=== PATIENT | male | born 1960 | race Caucasian/White ===

== ENCOUNTER → 2018-02-27 | Outpatient (CLI) | payer MEDICARE, OTHER ==
--- NOTE | 2018-02-27 09:22 | RADIOLOGY REPORT (SQ) ---
EXAM DESCRIPTION: COOKIE SWALLOW COMPLETED DATE/TIME: 02/27/2018 9:01 am REASON FOR STUDY: DYSPHAGIA R13.10 DYSPHAGIA, UNSPECIFIED FOOD IN PHARYNX CAUSING OTHER INJURY, SEQ UELA T1 7.228 S COMPARISON: None. TECHNIQUE: Videofluoroscopic swallowing examination was performed in conjunction with speech patholo gy. Videofluoroscopic imaging was obtained and reviewed and these are the findings: RADIATION DOSE: Total fluoroscopy time: 1 minutes 39 seconds 1 fluoroscopy image saved to PACS. LIMITATIONS: None FINDINGS: The patient was brought into the fluoro room and placed upright on a modified barium swall ow chair. The patient was then given multiple consistencies mixed with barium to swallow under live fluoroscopic video guidance. According to the Speech Pathologist there was laryngeal penetration wit h pudding thick consistencies only. No other laryngeal penetration and no tracheal aspiration. Norm al oral and pharyngeal transit time noted. No significant post swallow residual seen. Please see sp eech pathology report for further details and recommendations. IMPRESSION: LARYNGEAL PENETRATION WITH PUDDING THICK CONSISTENCIES ONLY. NO OTHER LARYNGEAL PENETRA TION AND NO TRACHEAL ASPIRATION.PLEASE SEE SPEECH PATHOLOGIST REPORT FOR OTHER FINDINGS AND RECOMMEND ATIONS. COMMENT: Quality ID [id number]: Final reports for procedures using fluoroscopy that document radiation exp osure indices, or exposure time and number of fluorographic images (if radiation exposure indices are not available) TECHNICAL DOCUMENTATION: JOB ID: [id number] [employer]- All Rights Reserved Reading location - IP/workstation name: [facility]
--- NOTE | 2018-02-27 11:55 | ST Modified Barium Swallow ---
Recommendation - Recommendations Recommendations: Mechanical soft, cut meats recommended due to difficulty with oral phase of swallow for meats. No other recommendations at this time. May need repeat study in the future should deficits worsen. Medical Diagnoses - Medical Diagnoses Medical Diagnosis Description & ICD-10 Code(s): dysphagia, R13.10 Other Medical Diagnoses/Co-Morbidities: Parkinson's disease ST Modified Barium Swallow - General Date: 02/27/18 Referring Physician: Dr. See Risks/Precautions: None - History History obtained from: Patient - Patient is a 57 year old male who attended today's test with his . Patient reports he has was diagnosed with Parkinson' s about 16 years ago. Patient reports he has had two deep brain stimulation (DBS ) surgeries in June 2011 and December 2016 and has two DBS implants, one on each side of his brain. Patient reports that his speech got significantly worse after his last DBS surgery when they performed surgery on the left side of his brain. reports that they were initially told it would go away, but it hasn' t. reports they went to [place] for a second opinion and doctor reported that the electrode may have placed to close to the language center of the brain. Patient also reports dysphagia and having particular difficulty with meat and rice and occasionally with water. Patient has been seen in outpatient setting for speech services, but has requested to cancel appointments at this time due to upcoming medical appointments. Medications: Sinemet, requip, celexa, amantadine Allergies: none reported - Functional Status Prior Functional Status: INDEPENDENT: feeding - independent - Subjective Patient/caregiver goal(s): r/o aspiration Cognitive-Linguistic Function: WNL Speech Intelligibility: Reduced intelligibility Current Nutritional Means: PO Current PO diet: Regular Current symptoms: c/o Globus sensation Pain: Patient reports, 0/5 - Objective Assessment: Upright, Left Lateral - Food Trials Used Food trials used: Thin liquids, Pureed, Regular The patient: Was Able to Self Feed - Oral-Motor Skills Dentition: Full Laryngeal Function: Volitional Cough - WNL, Volitional Swallow - WNL - Assessment Oral prep: Normal Labial closure: Adequate Leakage: None Mastication: Adequate Lingual Movement: Normal Oral stage: Normal for this Procedure - patient does report some difficulty orally managing foods, but not seen for this study - Pharyngeal Stage Initiation of Pharyngeal Stage Reflex: Normal Decreased laryngeal elevation: No Reduced Velopharyngeal Closure: no Reduced pressure generation: No reduced tongue-based retraction: No Pre-swallow pooling in valleculae: None Pre-Swallow pooling in pyriforms: None Reduced Thyro-Hyoid approximation: No Reduced epiglottic excursion: No Reduced pharyngeal peristalsis/contraction: No Multiple Swallows with: Effective Post-swallow residulas vallecular: Mild - with pudding Post-Swallow residuals in pyriforms: None Pharyngeal Stage Comments: WFL-penetration of pudding x1, able to clear. - Esophageal Stage Cricopharyngeal Function: Normal - Fall Risk Assessment Medications/Conditions that increase fall risks include: Antidepressants, sedatives, anti-arrhythmic, diuretic, benzodiazipenes, neuroleptics. BP regulation problems, cardiac problems, balance or gait deficits, neurological problems. Fall Risk Actions Taken: No action needed - Behavioral Observations During evaluation process patient: was pleasant, was cooperative, able to answer questions - Treatment / Educational Needs: Treatment/Education Needs: Treatment consisted of patient education on the role of the Speech Pathologist. Patient's plan of care and golas were communicated as well as scheduling and attendance policies. Recommendations for initial home program were shared. Patient demonstrated understanding and verbalized agreement. - Impression/Summary Laryngeal Penetration: Yes, Flash, during swallow Consistency: Pudding Tracheal Aspiration: no Patient presents with: Normal swallow at eval Risk of Aspiration: Minimal Risk of nutritional compromise: WNL Evaluation and Findings: No pharyngeal phase deficits seen for swallowing this day. The patient does report some difficulty with specific foods (rice, meats). However, this appear to be due more to oral phase bolus control rather than pharyngeal phase deficits. - Recommendations Solid diet recommendations: Chopped Meat Liquid Diet Modification: Thin Dysphagia therapy with DONOR CENTER TECHNICIAN: no Recommended techniques: Fully Upright During Meal, Small Bites and Sips Information, Precautions and Recommendations: Patient (Written), Patient (Verbal ), Family Member (Written), Family Member (Verbal) - Time Total Time: 20 - Plan of Care Strategies to optimize patient understanding include:: ongoing assessment of educational needs, implementation of educational strategies, and re-education. - - -: Thank you for the opportunity to work with this patient and his/her family. Should you have any questions about this patient's plan or progress, I can be reached at [phone]. Charge G Code? - - -: Yes ST F.L. Impairment Category - Rationale Based On Rationale Based On: Clin Find., Obj Measures - Swallowing Current G8996: CH 0% Impaired Goal G8997: CH 0% Impaired Discharge G8998: CH 0% Impaired
== END ==
LOC: RAD 08:33
PROVIDERS: ATTEND Psychiatry & Neurology Neurology
DX: R13.10 Dysphagia, unspecified (principal); G20 Parkinson's disease
CPT/HCPCS: 74230; 92611; G8996; G8997; G8998

== ENCOUNTER 2018-05-20 12:43 | Emergency (ER) | payer MEDICARE, OTHER ==
[2018-05-20] MEDS ORDERED: FENTANYL CITRATE INJ/PF 100 MCG/2 ML AMPUL IM ONE (14:26)
--- NOTE | 2018-05-20 14:29 | ER Document Report ---
ED Medical Screen (RME) - General Chief Complaint: Leg Pain Stated Complaint: LEFT LEG PAIN Time Seen by Provider: 05/20/18 14:17 Mode of Arrival: Wheelchair Information source: Patient Notes: 58 [facility] with complaints of left claf and leg pain. pt denies any fevers or chill I have greeted and performed a rapid initial assessment of this patient. A comprehensive ED assessment and evaluation of the patient, analysis of test results and completion of the medical decision making process will be conducted by additional ED providers. PHYSICAL EXAMINATION: GENERAL: Well-appearing, well-nourished and in no acute distress. HEAD: Atraumatic, normocephalic. EYES: Pupils equal round extraocular movements intact, conjunctiva are normal. ENT: Nares patent NECK: Normal range of motion LUNGS: No respiratory distress Musculoskeletal: weakness i nthe legs NEUROLOGICAL: weakness PSYCH: Normal mood, normal affect. SKIN: Warm, Dry, normal turgor, no rashes or lesions noted. TRAVEL OUTSIDE OF THE [place] IN LAST 30 DAYS: No - Related Data Allergies/Adverse Reactions: No Known Allergies Allergy (Verified 05/20/18 12:45) Past Medical History - Social History Frequency of alcohol use: Occasional Drug Abuse: None - Past Medical History Cardiac Medical History: Reports: Hx Hypertension - NO MEDS Denies: Hx Heart Attack Pulmonary Medical History: Denies: Hx Asthma Neurological Medical History: Denies: Hx Cerebrovascular Accident, Hx Seizures Renal/ Medical History: Denies: Hx Peritoneal Dialysis GI Medical History: Denies: Hx Hepatitis, Hx Hiatal Hernia, Hx Ulcer Infectious Medical History: Denies: Hx Hepatitis Past Surgical History: Denies: Hx Open Heart Surgery, Hx Pacemaker Physical Exam - Vital signs Vitals: Temp Pulse Resp BP Pulse Ox 99.1 F 86 16 154/105 H 97 05/20/18 12:53 05/20/18 12:53 05/20/18 12:53 05/20/18 12:53 05/20/18 12:53 Course - Vital Signs Vital signs: Temp Pulse Resp BP Pulse Ox 99.1 F 86 16 154/105 H 97 05/20/18 12:53 05/20/18 12:53 05/20/18 12:53 05/20/18 12:53 05/20/18 12:53 Doctor's Discharge - Discharge Referrals: MARY LEYVA MD [Primary Care Provider] - Follow up as needed
[2018-05-20] MEDS ORDERED: FENTANYL CITRATE INJ/PF 100 MCG/2 ML AMPUL IV ONE (14:30)
[2018-05-20 15:09] LABS: ABSOLUTE EOSINOPHILS # (AUTO) 0.3 10^3/uL (0.0-0.6); ABSOLUTE LYMPHOCYTES (AUTO) 1.2 10^3/uL (0.5-4.7); ABSOLUTE MONOCYTES (AUTO) 0.7 10^3/uL (0.1-1.4); ABSOLUTE NEUT (AUTO) 6.7 10^3/uL (1.7-8.2); BASOPHILS % (AUTO) 0.4 % (0-2); EOSINOPHILS % (AUTO) 3.2 % (0-6); HEMATOCRIT 42.1 % (37.9-51.0); HEMOGLOBIN 14.4 g/dL (13.5-17.0); LYMPHOCYTES % (AUTO) 13.9 % (13-45); MEAN CORPUSCULAR HEMOGLOBIN 31.3 pg (27.0-33.4); MEAN CORPUSCULAR HGB CONC 34.3 g/dL (32.0-36.0); MEAN CORPUSCULAR VOLUME 92 fl (80-97); MONOCYTES % (AUTO) 7.4 % (3-13); PLATELET COUNT 252 10^3/uL (150-450); RED CELL DISTRIBUTION WIDTH 12.2 % (11.5-14.0); SEGMENTED NEUTROPHILS % (AUTO) 75.1 % (42-78); TOTAL CELLS COUNTED % (AUTO) 100 %; WHITE BLOOD COUNT 8.9 10^3/uL (4.0-10.5)
[2018-05-20 15:33] LABS: ALANINE AMINOTRANSFERASE 14 U/L (21-72); ALBUMIN 4.1 g/dL (3.5-5.0); ALKALINE PHOSPHATASE 85 U/L (38-126); ANION GAP 11 (5-19); ASPARTATE AMINO TRANSFERASE 35 U/L (17-59); BILIRUBIN,DIRECT 0.3 mg/dL (0.0-0.4); BILIRUBIN,TOTAL 0.3 mg/dL (0.2-1.3); BLOOD UREA NITROGEN 23 mg/dL (7-20); CALCIUM 9.3 mg/dL (8.4-10.2); CARBON DIOXIDE 31 mmol/L (22-30); CHLORIDE 102 mmol/L (98-107); GLUCOSE 93 mg/dL (75-110); POTASSIUM 4.6 mmol/L (3.6-5.0); SODIUM 143.6 mmol/L (137-145); TOTAL PROTEIN 7.2 g/dL (6.3-8.2)
[2018-05-20] MEDS ORDERED: KETOROLAC TROMETHAMINE INJ/PF 30 MG/1 ML SDV IV ONE (16:40)
[2018-05-20] MEDS ORDERED: LIDOCAINE 5% (700 MG) TRANSDERMAL ADH..PATCH TP ONE (16:42)
--- NOTE | 2018-05-20 17:04 | RADIOLOGY REPORT (SQ) ---
EXAM DESCRIPTION: VENOUS UNILATERAL LOWER COMPLETED DATE/TIME: 05/20/2018 4:56 pm REASON FOR STUDY: left leg pain COMPARISON: None. TECHNIQUE: Dynamic and static mohamud scale and color images acquired of the left leg venous system. Se lected spectral images acquired with additional compression and augmentation maneuvers. The contralat eral common femoral vein and saphenofemoral junction were also imaged. Images stored on PACS. LIMITATIONS: None. FINDINGS: COMMON FEMORAL: Normal phasicity, compression and augmentation. No visualized echogenic ma terial on mohamud scale. No defects on color images. FEMORAL: Normal compression and augmentation. No visualized echogenic material on mohamud scale. No defe cts on color images. POPLITEAL: Normal compression, augmentation. No visualized echogenic material on mohamud scale. No defec ts on color images. CALF VESSELS: Normal compression, augmentation. No visualized echogenic material on mohamud scale. No de fects on color images. GSV and SSV: Normal compression, augmentation. No visualized echogenic material on mohamud scale. No def ects on color images. ANY DEEP VENOUS INSUFFICIENCY: No. ANY EVIDENCE OF POPLITEAL CYST: No. OTHER: No other significant finding. CONTRALATERAL COMMON FEMORAL VEIN AND SAPHENOFEMORAL JUNCTION: Normal phasicity, compression and augmentation. No visualized echogenic material on mohamud scale. No de fects on color images. IMPRESSION: NO EVIDENCE OF DVT OR SVT IN THE LEFT LEG. TECHNICAL DOCUMENTATION: JOB ID: [id number] [employer].- All Rights Reserved Reading location - IP/workstation name: [email or web address]
--- NOTE | 2018-05-20 18:20 | RADIOLOGY REPORT (SQ) ---
EXAM DESCRIPTION: HIP LEFT AP/LATERAL COMPLETED DATE/TIME: 05/20/2018 5:57 pm REASON FOR STUDY: pain COMPARISON: None. NUMBER OF VIEWS: Two views. TECHNIQUE: AP pelvis and additional frog-leg view of the left hip. LIMITATIONS: None. FINDINGS: MINERALIZATION: Normal. LEFT HIP: No fracture or dislocation. No worrisome bone lesions. RIGHT HIP: No fracture or dislocation. No worrisome bone lesions. PUBIS AND ISCHIUM: No fracture. PELVIS: No fracture. SACRUM: No fracture or dislocation. No worrisome bone lesions. LOWER LUMBAR SPINE: No fracture or dislocation. No worrisome bone lesions. No significant disc disea se. SOFT TISSUES: No findings. OTHER: No other significant finding. IMPRESSION: NEGATIVE STUDY OF THE LEFT HIP AND PELVIS. NO RADIOGRAPHIC EVIDENCE OF ACUTE INJURY. TECHNICAL DOCUMENTATION: JOB ID: [id number] [employer]- All Rights Reserved Reading location - IP/workstation name: [email or web address]
--- NOTE | 2018-05-20 18:21 | ER Document Report ---
ED General - General Chief Complaint: Leg Pain Stated Complaint: LEFT LEG PAIN Time Seen by Provider: 05/20/18 14:17 Mode of Arrival: Wheelchair TRAVEL OUTSIDE OF THE [place] IN LAST 30 DAYS: No - HPI Patient complains to provider of: Left leg pain Notes: Patient has a history of Parkinson's disease coming in today for evaluation of left leg pain. Patient states ongoing for the last few days was evaluated by his doctors at [facility] however no testing was done the images were taken. Patient states that the pain has been ongoing for months however is gone to the point now where he is having difficulty ambulating. States no etiology with visits to PCP neurologist and neurosurgery teams. Patient upon my evaluation sitting in the chair. Patient states starts in the lower back mostly in the buttocks and goes down the back side of his leg to his ankle. Patient denies any trauma denies fevers chills nausea or vomiting. - Related Data Allergies/Adverse Reactions: No Known Allergies Allergy (Verified 05/20/18 12:45) Past Medical History - General Information source: Patient - Social History Smoking Status: Never Smoker Frequency of alcohol use: Occasional Drug Abuse: None Family History: Reviewed & Not Pertinent Patient has suicidal ideation: No Patient has homicidal ideation: No - Past Medical History Cardiac Medical History: Reports: Hx Hypertension - NO MEDS Denies: Hx Heart Attack Pulmonary Medical History: Denies: Hx Asthma Neurological Medical History: Denies: Hx Cerebrovascular Accident, Hx Seizures Renal/ Medical History: Denies: Hx Peritoneal Dialysis GI Medical History: Denies: Hx Hepatitis, Hx Hiatal Hernia, Hx Ulcer Infectious Medical History: Denies: Hx Hepatitis Past Surgical History: Denies: Hx Open Heart Surgery, Hx Pacemaker Review of Systems - Review of Systems Constitutional: No symptoms reported EENT: No symptoms reported Cardiovascular: No symptoms reported Respiratory: No symptoms reported Gastrointestinal: No symptoms reported Genitourinary: No symptoms reported Male Genitourinary: No symptoms reported Musculoskeletal: No symptoms reported Skin: No symptoms reported Hematologic/Lymphatic: No symptoms reported Neurological/Psychological: No symptoms reported Physical Exam - Vital signs Vitals: Temp Pulse Resp BP Pulse Ox 99.1 F 86 16 154/105 H 97 05/20/18 12:53 05/20/18 12:53 05/20/18 12:53 05/20/18 12:53 05/20/18 12:53 Course - Re-evaluation Re-evalutation: 05/20/18 19:14 The patient presents with low back pain/leg pain without signs of spinal cord compression, cauda equina syndrome, infection, aneurysm, or other serious etiology. The patient is neurologically intact. Given the extremely low risk of these diagnoses further testing and evaluation for these possibilities does not appear to be indicated at this time. The patient has been instructed to return if the symptoms worsen or change in any way. Patient's x-rays that show some signs of slight constipation patient states difficult take a bowel movement as that is painful when he has a bowel movement. Patient is able to stand for his lumbar spine x-rays. Unclear etiology patient's pain distribution pain does sound similar to sciatica. Patient will be discharged home on Neurontin and a prednisone taper patient agrees with this course did give the patient a prescription for a walker at his request to as well. Patient information also be given to our social work team do think patient probably will benefit from physical therapy as outpatient patient was encouraged to follow-up with his especially team - Vital Signs Vital signs: Temp Pulse Resp BP Pulse Ox 97.5 F 87 18 156/106 H 96 05/20/18 19:09 05/20/18 19:09 05/20/18 19:09 05/20/18 19:09 05/20/18 19:09 - Laboratory Result Diagrams: 05/20/18 14:45 05/20/18 14:45 Laboratory results interpreted by me: 05/20/18 14:45 Carbon Dioxide 31 H BUN 23 H ALT 14 L Discharge - Discharge Clinical Impression: Leg pain Qualifiers: Laterality: left Qualified Code(s): M79.605 - Pain in left leg Condition: Good Disposition: HOME, SELF-CARE Instructions: Leg Pain Nonspecific ([facility]), Sciatica ([facility]) Additional Instructions: At this time laboratory studies show no signs of infection no signs of muscle breakdown. Your x-ray showed no signs of fracture does show some signs of slight constipation. Description of your pain is more consistent with sciatica. We will treated today with steroid taper and Neurontin. Would highly recommend she follow-up with your primary care physician and other specialist for further evaluation. Prescriptions: Gabapentin [Neurontin 100 mg Capsule] 100 mg PO Q12 #60 capsule Prednisone [Deltasone] 60 mg PO DAILY #24 tablet Walker [Ultra-Light Rollator] 1 each DAILY #1 each Referrals: MARY LEYVA MD [NO LOCAL MD] - Follow up as needed
--- NOTE | 2018-05-20 18:22 | RADIOLOGY REPORT (SQ) ---
EXAM DESCRIPTION: L SPINE WHOLE COMPLETED DATE/TIME: 05/20/2018 6:10 pm REASON FOR STUDY: back pain COMPARISON: None. NUMBER OF VIEWS: Five views including obliques. TECHNIQUE: AP, lateral, oblique, and sacral radiographic images acquired of the lumbar spine. LIMITATIONS: None. FINDINGS: MINERALIZATION: Normal. SEGMENTATION: Normal. No transitional anatomy. ALIGNMENT: Normal. VERTEBRAE: Maintained height. No fracture or worrisome bone lesion. DISCS: Degenerative disc disease L3-4, L4-5, L5-S1. POSTERIOR ELEMENTS: Pedicles and facets are intact. No pars defect or posterior arch defects. HARDWARE: None in the spine. PARASPINAL SOFT TISSUES: Normal. PELVIS: Intact as visualized. No fractures or worrisome bone lesions. SI joints intact. OTHER: No other significant finding. IMPRESSION: Multilevel degenerative disc disease. No acute fracture. TECHNICAL DOCUMENTATION: JOB ID: [id number] [employer]- All Rights Reserved Reading location - IP/workstation name: JOHN
[2018-05-20] MEDS ORDERED: PREDNISONE 20 MG TABLET PO ONE (18:41)
[2018-05-20] MEDS ORDERED: GABAPENTIN 100 MG CAPSULE PO ONE (18:41)
[2018-05-20 19:13] VITALS: BP 156/106
== END 2018-05-20 19:13 | disposition home or self-care (01) ==
LOC: ER 12:43
DX: M79.605 Pain in left leg (principal)
CPT/HCPCS: 99284; 96374; 96375; 36415; 82550; 85025; 80053; 93971; 73502; 72110; J3010; J1885; A9270 ×2; J7512

== ENCOUNTER 2018-06-04 08:47 | Day surgery (SDC) | payer MEDICARE, OTHER ==
[2018-06-04 09:37] LABS: INTERNATIONAL RATION (INR) 0.92; PARTIAL THROMBOPLASTIN TIME 25.9 SEC (23.5-35.8); PROTHROMBIN TIME 12.8 SEC (11.4-15.4)
[2018-06-04] MEDS ORDERED: LIDOCAINE 1% INJ-PF (10 MG/ML) 30 ML SDV ONE (09:47)
[2018-06-04] MEDS ORDERED: FENTANYL CITRATE INJ/PF 100 MCG/2 ML AMPUL ONE ×2 (10:23→10:24)
[2018-06-04] MEDS ORDERED: HYDROCODONE/ACETAMINOPHEN 5-325 MG TABLET ONE (11:20)
--- NOTE | 2018-06-04 11:53 | RADIOLOGY REPORT (SQ) ---
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 TECHNIQUE: Fluoroscopic guided lumbar myelogram. Postmyelogram CT lumbar spine with sagittal and coronal reconstructions. LIMITATIONS: None. PROCEDURE: After written consent and assessment were obtained, the patient was brought into the fluo roscopy room and placed prone on the table. The patient's lower back was prepped in a sterile fashio n and an entry site was selected under live fluoroscopic guidance. The entry site was anesthetized wi th 4 mL of 1% lidocaine. The 22 gauge needle was advanced through the skin and into the thecal sac at the left paracentral L1-2 level. Contrast was injected into the thecal sac. Following the procedur e the needle was removed and a sterile bandage was placed of the site. Prone cross-table lateral kate ms, multiple oblique prone and semi-erect films of the lumbar spine were obtained CONTRAST: 8 mL Isovue M 200. IMAGES ACQUIRED: Prone cross-table films, multiple oblique prone and semi-erect images, postmyelogram CT TECHNIQUE: After performing lumbar myelogram, axial images were acquired through the lumbar spine wi thout intravenous contrast. Images reviewed with lung, soft tissue and bone windows. Reconstructed coronal and sagittal MPR images reviewed. All images stored on PACS. All CT scanners at this facility use dose modulation, iterative reconstruction, and/or weight based d osing when appropriate to reduce radiation dose to as low as reasonably achievable (ALARA). [facility]: Dose Right [facility]: CareDose [facility]: Dose Right [facility]: Teradose 4D [facility]: [email or web address] FINDINGS: At fluoroscopy, a high-grade myelographic block is encountered at the L4-5 disc level. Mi nimal contrast bypasses the central canal stenosis at L4-5 to fill the sacral canal. On the prone cr oss-table lateral lumbar spine image, a large ventral epidural defect is present at the L4-5 level, a small ventral epidural defect is present at L3-4. Postmyelogram CT demonstrates a very large disc herniation at the L4-5 level causing complete effacem ent of the CSF around the lumbar nerve roots, with flattening of the thecal sac at the takeoff of the bilateral L5 nerve roots in the lateral recess. This is best shown on axial images 85-89, and sagit carolann reconstruction images 18 through 26. The bilateral L4 nerve roots exit above this disc herniatio n, without impingement. Remainder of the study demonstrates that the conus is at the T11-12 level. T10-11, T11-12, T12-L1, L 1-2, and L2-3 disc levels are unremarkable. At L3-4, there is mild diffuse posterior disc bulging and mild facet and ligament hypertrophy without significant foraminal narrowing. Borderline central canal stenosis. The L5-S1 level is unremarkable. Mild SI joint bony sclerosis and bony spurring. IMPRESSION: Myelographic block at the L4-5 level related to a large central disc herniation. This f lattens the thecal sac at the takeoff of the L5 nerve roots bilaterally in the lateral recess. L4 ne rve roots exit the spinal canal without impingement at this level. COMMENT: Patient medication list reviewed: Yes- Quality ID# [id number]:Eligible professional attests to doc umenting in the medical record they obtained, updated, or reviewed the patient's current medications. TECHNICAL DOCUMENTATION: JOB ID: [id number] Quality ID # [id number]: Final reports with documentation of one or more dose reduction techniques (e.g., Au tomated exposure control, adjustment of the mA and/or kV according to patient size, use of iterative reconstruction technique) 2010 [employer]- All Rights Reserved Reading location - IP/workstation name: [facility]
--- NOTE | 2018-06-04 11:53 | RADIOLOGY REPORT (SQ) ---
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 TECHNIQUE: Fluoroscopic guided lumbar myelogram. Postmyelogram CT lumbar spine with sagittal and coronal reconstructions. LIMITATIONS: None. PROCEDURE: After written consent and assessment were obtained, the patient was brought into the fluo roscopy room and placed prone on the table. The patient's lower back was prepped in a sterile fashio n and an entry site was selected under live fluoroscopic guidance. The entry site was anesthetized wi th 4 mL of 1% lidocaine. The 22 gauge needle was advanced through the skin and into the thecal sac at the left paracentral L1-2 level. Contrast was injected into the thecal sac. Following the procedur e the needle was removed and a sterile bandage was placed of the site. Prone cross-table lateral kate ms, multiple oblique prone and semi-erect films of the lumbar spine were obtained CONTRAST: 8 mL Isovue M 200. IMAGES ACQUIRED: Prone cross-table films, multiple oblique prone and semi-erect images, postmyelogram CT TECHNIQUE: After performing lumbar myelogram, axial images were acquired through the lumbar spine wi thout intravenous contrast. Images reviewed with lung, soft tissue and bone windows. Reconstructed coronal and sagittal MPR images reviewed. All images stored on PACS. All CT scanners at this facility use dose modulation, iterative reconstruction, and/or weight based d osing when appropriate to reduce radiation dose to as low as reasonably achievable (ALARA). [facility]: Dose Right [facility]: CareDose [facility]: Dose Right [facility]: Teradose 4D [facility]: NEXGRID FINDINGS: At fluoroscopy, a high-grade myelographic block is encountered at the L4-5 disc level. Mi nimal contrast bypasses the central canal stenosis at L4-5 to fill the sacral canal. On the prone cr oss-table lateral lumbar spine image, a large ventral epidural defect is present at the L4-5 level, a small ventral epidural defect is present at L3-4. Postmyelogram CT demonstrates a very large disc herniation at the L4-5 level causing complete effacem ent of the CSF around the lumbar nerve roots, with flattening of the thecal sac at the takeoff of the bilateral L5 nerve roots in the lateral recess. This is best shown on axial images 85-89, and sagit carolann reconstruction images 18 through 26. The bilateral L4 nerve roots exit above this disc herniatio n, without impingement. Remainder of the study demonstrates that the conus is at the T11-12 level. T10-11, T11-12, T12-L1, L 1-2, and L2-3 disc levels are unremarkable. At L3-4, there is mild diffuse posterior disc bulging and mild facet and ligament hypertrophy without significant foraminal narrowing. Borderline central canal stenosis. The L5-S1 level is unremarkable. Mild SI joint bony sclerosis and bony spurring. IMPRESSION: Myelographic block at the L4-5 level related to a large central disc herniation. This f lattens the thecal sac at the takeoff of the L5 nerve roots bilaterally in the lateral recess. L4 ne rve roots exit the spinal canal without impingement at this level. COMMENT: Patient medication list reviewed: Yes- Quality ID# [id number]:Eligible professional attests to doc umenting in the medical record they obtained, updated, or reviewed the patient's current medications. TECHNICAL DOCUMENTATION: JOB ID: [id number] Quality ID # 436: Final reports with documentation of one or more dose reduction techniques (e.g., Au tomated exposure control, adjustment of the mA and/or kV according to patient size, use of iterative reconstruction technique) 2010 [employer]- All Rights Reserved Reading location - IP/workstation name: PENDING SALE TO [facility]
[2018-06-04 13:21] VITALS: BP 150/100
== END 2018-06-04 13:15 | disposition home or self-care (01) ==
LOC: RAD 08:47
PROVIDERS: ATTEND Orthopaedic Surgery Sports Medicine
DX: M54.16 Radiculopathy, lumbar region (principal); Z79.01 Long term (current) use of anticoagulants
CPT/HCPCS: 36415; 85610; 85730; 72265; 72132; J3010; J3490; A9270

== ENCOUNTER → 2019-09-08 | Outpatient (CLI) | payer MEDICARE, OTHER ==
--- NOTE | 2019-09-08 17:45 | RADIOLOGY REPORT (SQ) ---
EXAM DESCRIPTION: CT LUMBAR SPINE WITHOUT COMPLETED DATE/TIME: 09/08/2019 4:25 pm REASON FOR STUDY: M51.36 OTHER INTERVERTEBRAL DISC DEGENERATION, LUMBAR REGION M51.36 OTHER INTERVE RTEBRAL DISC DEGENERATION, LUMBAR REGION COMPARISON: None. TECHNIQUE: Axial images acquired through the lumbar spine without intravenous contrast. Images revi ewed with lung, soft tissue and bone windows. Reconstructed coronal and sagittal MPR images reviewe d. All images stored on PACS. All CT scanners at this facility use dose modulation, iterative reconstruction, and/or weight based d osing when appropriate to reduce radiation dose to as low as reasonably achievable (ALARA). [facility]: Dose Right [facility]: CareDose [facility]: Dose Right [facility]: Teradose 4D [facility]: [employer] RADIATION DOSE: mGy. LIMITATIONS: None. FINDINGS: SEGMENTATION: Normal. No transitional anatomy. ALIGNMENT: Normal. VERTEBRAL BODIES: No fractures. No dislocation. No acute findings. DISCS: Disc spaces are narrowed from L3-S1. L1-L2: No significant protrusions. No significant stenosis. L2-L3: No significant protrusions. No significant stenosis. L3-L4: No significant protrusions. No significant stenosis. L4-L5: Mild concentric disc bulging with no central canal or foraminal stenosis. L5-S1: No significant protrusions. No significant stenosis. PEDICLES, TRANSVERSE PROCESSES: No fractures. No dislocation. No acute findings. FACETS, POSTERIOR ELEMENTS: No fractures. No dislocation. No spinal stenosis. HARDWARE: None in the spine. VISUALIZED RIBS: No fractures. SOFT TISSUES: There are numerous small mesenteric lymph nodes. OTHER: No other significant finding. IMPRESSION: 1. Mild concentric disc bulging at L4-5 with no significant stenoses. No other signifi cant finding in the spine. 2. Numerous small mesenteric lymph nodes. Correlate for mesenteric adenitis. TECHNICAL DOCUMENTATION: JOB ID: [id number] Quality ID # 436: Final reports with documentation of one or more dose reduction techniques (e.g., Au tomated exposure control, adjustment of the mA and/or kV according to patient size, use of iterative reconstruction technique) 2010 [employer]- All Rights Reserved Reading location - IP/workstation name: [email or web address]
== END ==
LOC: RAD 15:58
PROVIDERS: ATTEND Orthopaedic Surgery Sports Medicine
DX: M51.36 Other intervertebral disc degeneration, lumbar region (principal)
CPT/HCPCS: 72131

== ENCOUNTER 2020-05-01 12:36 | Emergency (ER) | payer MEDICARE, OTHER ==
--- NOTE | 2020-05-01 12:56 | ER Document Report ---
ED Medical Screen (RME) - General Chief Complaint: Weakness Stated Complaint: WEAKNESS Time Seen by Provider: 05/01/20 12:50 Primary Care Provider: VENUS VALENZUELA MD [Primary Care Provider] - Follow up as needed Mode of Arrival: Wheelchair Information source: Relative - If Notes: 60-year-old male presented to ED for strokelike symptoms. He is scheduled for colonoscopy on Saturday he started his prep yesterday became very weak and fell. This morning he has not been able to speak is normal his eyes are twitching which is not his normal he does speak at times and at other times is not able to state speak he is much weaker than he is normally. And is not speaking his usual and is not oriented as usual. I have ordered a stroke protocol. When I first talked to her she was tell me he was weaker she did not let me know that he was not able to speak in his speech was garbled. He did answer me some sentences when I was speaking to him but he did not answer appropriately other questions I asked. He did not have any palmar drift he does have facial droop but this is his normal I have greeted and performed a rapid initial assessment of this patient. A comprehensive ED assessment and evaluation of the patient, analysis of test results and completion of medical decision making process will be conducted by an additional ED providers. TRAVEL OUTSIDE OF THE [place] IN LAST 30 DAYS: No - Related Data Allergies/Adverse Reactions: No Known Allergies Allergy (Verified 06/04/18 09:08) Past Medical History - Past Medical History Cardiac Medical History: Denies: Hx Coronary Artery Disease, Hx Heart Attack, Hx Hypertension - NO MEDICATIONS Pulmonary Medical History: Denies: Hx Asthma, Hx Bronchitis, Hx COPD, Hx Pneumonia Neurological Medical History: Denies: Hx Cerebrovascular Accident, Hx Seizures Renal/ Medical History: Denies: Hx Peritoneal Dialysis GI Medical History: Denies: Hx Hepatitis, Hx Hiatal Hernia, Hx Ulcer Musculoskeltal Medical History: Reports Hx Arthritis - BACK Infectious Medical History: Denies: Hx Hepatitis Past Surgical History: Denies: Hx Open Heart Surgery, Hx Pacemaker - Immunizations Hx Diphtheria, Pertussis, Tetanus Vaccination: Yes Physical Exam - Vital signs Vitals: Temp Pulse Resp BP Pulse Ox 98.3 F 75 16 116/85 96 05/01/20 12:44 05/01/20 12:44 05/01/20 12:44 05/01/20 12:44 05/01/20 12:44 Course - Vital Signs Vital signs: Temp Pulse Resp BP Pulse Ox 98.3 F 75 16 116/85 96 05/01/20 12:44 05/01/20 12:44 05/01/20 12:44 05/01/20 12:44 05/01/20 12:44 Doctor's Discharge - Discharge Referrals: VENUS VALENZUELA MD [Primary Care Provider] - Follow up as needed
--- NOTE | 2020-05-01 13:17 | RADIOLOGY REPORT (SQ) ---
EXAM DESCRIPTION: CHEST SINGLE VIEW IMAGES COMPLETED DATE/TIME: 05/01/2020 1:09 pm REASON FOR STUDY: Protocol stroke COMPARISON: None. EXAM PARAMETERS: NUMBER OF VIEWS: One view. TECHNIQUE: Single frontal radiographic view of the chest acquired. RADIATION DOSE: NA LIMITATIONS: None. FINDINGS: LUNGS AND PLEURA: No opacities, masses or pneumothorax. No pleural effusion. MEDIASTINUM AND HILAR STRUCTURES: No masses. Contour normal. HEART AND VASCULAR STRUCTURES: Heart normal in size. Normal vasculature. BONES: No acute findings. HARDWARE: Stimulator in the left clavicular region with electrodes extending into the neck. OTHER: No other significant finding. IMPRESSION: NO ACUTE RADIOGRAPHIC FINDING IN THE CHEST. TECHNICAL DOCUMENTATION: JOB ID: [id number] 2010 [employer]- All Rights Reserved Reading location - IP/workstation name: [email or web address]
[2020-05-01] MEDS ORDERED: NORMAL SALINE 1000 ML 1,000 ML IV ONE (13:18)
[2020-05-01] MEDS ORDERED: DEXTROSE 5%-LACTATED RINGERS 1,000 ML IV ONE (13:18)
--- NOTE | 2020-05-01 13:19 | RADIOLOGY REPORT (SQ) ---
EXAM DESCRIPTION: CT HEAD WITHOUT IMAGES COMPLETED DATE/TIME: 05/01/2020 1:11 pm REASON FOR STUDY: Protocol stroke COMPARISON: None. TECHNIQUE: Axial images acquired through the brain without intravenous contrast. Images reviewed wi th bone, brain and subdural windows. Additional sagittal and coronal reconstructions were generated. Images stored on PACS. All CT scanners at this facility use dose modulation, iterative reconstruction, and/or weight based d osing when appropriate to reduce radiation dose to as low as reasonably achievable (ALARA). [facility]: Dose Right [facility]: CareDose [facility]: Dose Right [facility]: Teradose 4D [facility]: [employer] RADIATION DOSE: CT Rad equipment meets quality standard of care and radiation dose reduction techniq ues were employed. CTDIvol: 53.2 mGy. DLP: 1150 mGy-cm. mGy. LIMITATIONS: None. FINDINGS: VENTRICLES: Normal size and contour. CEREBRUM: Bilateral stimulator electrodes. No masses. No hemorrhage. No midline shift. No evidenc e for acute infarction. Normal mohamud/white matter differentiation. No areas of low density in the whit e matter. CEREBELLUM: No masses. No hemorrhage. No alteration of density. No evidence for acute infarction. EXTRAAXIAL SPACES: No fluid collections. No masses. ORBITS AND GLOBE: No intra- or extraconal masses. Normal contour of globe without masses. CALVARIUM: No fracture. PARANASAL SINUSES: No fluid or mucosal thickening. SOFT TISSUES: No mass or hematoma. OTHER: No other significant finding. IMPRESSION: NORMAL BRAIN CT WITHOUT CONTRAST. NO ACUTE FINDINGS. BILATERAL STIMULATOR ELECTRODES. EVIDENCE OF ACUTE STROKE: NO. COMMENT: Pertinent positive or negative findings of the imaging study reported as a CRITICAL EXAM leoncio PONCE NP at13:13 on 05/01/2020. Category of Critical Exam: Stroke protocol. Quality ID # 436: Final reports with documentation of one or more dose reduction techniques (e.g., Au tomated exposure control, adjustment of the mA and/or kV according to patient size, use of iterative reconstruction technique) TECHNICAL DOCUMENTATION: JOB ID: [id number] 2010 [employer]- All Rights Reserved Reading location - IP/workstation name: [email or web address]
[2020-05-01 13:38] LABS: INTERNATIONAL RATION (INR) 0.98; PARTIAL THROMBOPLASTIN TIME 26.8 SEC (23.5-35.8)
[2020-05-01 13:55] LABS: ABSOLUTE EOSINOPHILS # (AUTO) 0.2 10^3/uL (0.0-0.6); ABSOLUTE LYMPHOCYTES (AUTO) 1.4 10^3/uL (0.5-4.7); ABSOLUTE MONOCYTES (AUTO) 0.5 10^3/uL (0.1-1.4); ABSOLUTE NEUT (AUTO) 3.2 10^3/uL (1.7-8.2); BASOPHILS % (AUTO) 0.6 % (0-2); EOSINOPHILS % (AUTO) 4.4 % (0-6); HEMATOCRIT 42.8 % (37.9-51.0); HEMOGLOBIN 14.7 g/dL (13.5-17.0); LYMPHOCYTES % (AUTO) 26.4 % (13-45); MEAN CORPUSCULAR HEMOGLOBIN 31.3 pg (27.0-33.4); MEAN CORPUSCULAR HGB CONC 34.4 g/dL (32.0-36.0); MEAN CORPUSCULAR VOLUME 91 fl (80-97); MONOCYTES % (AUTO) 8.5 % (3-13); PLATELET COUNT 239 10^3/uL (150-450); RED BLOOD COUNT 4.71 10^6/uL (4.35-5.55); RED CELL DISTRIBUTION WIDTH 12.4 % (11.5-14.0); SEGMENTED NEUTROPHILS % (AUTO) 60.1 % (42-78); TOTAL CELLS COUNTED % (AUTO) 100 %; WHITE BLOOD COUNT 5.3 10^3/uL (4.0-10.5)
[2020-05-01 13:57] LABS: ALBUMIN 4.1 g/dL (3.5-5.0); ALKALINE PHOSPHATASE 63 U/L (38-126); ANION GAP 5 (5-19); ASPARTATE AMINO TRANSFERASE 34 U/L (17-59); BILIRUBIN,TOTAL 0.7 mg/dL (0.2-1.3); BLOOD UREA NITROGEN 16 mg/dL (7-20); CALCIUM 9.3 mg/dL (8.4-10.2); CARBON DIOXIDE 29 mmol/L (22-30); CHLORIDE 103 mmol/L (98-107); CREATINE KINASE 145 U/L (55-170); GLUCOSE 95 mg/dL (75-110); POTASSIUM 4.3 mmol/L (3.6-5.0); TOTAL PROTEIN 6.9 g/dL (6.3-8.2)
[2020-05-01] MEDS ORDERED: DICYCLOMINE HCL INJ 20 MG/2 ML AMPULE IM ONE (14:06)
[2020-05-01 14:08] LABS: CREATINE KINASE MB 1.75 ng/mL (<4.55); TROPONIN I < 0.012 ng/mL
[2020-05-01 16:25] LABS: APPEARANCE,URINE CLEAR; BILIRUBIN,URINE NEGATIVE (NEGATIVE); COLOR,URINE YELLOW; GLUCOSE, URINE NEGATIVE (NEGATIVE); KETONES,URINE TRACE mg/dL (NEGATIVE); LEUKOCYTE ESTERASE,URINE NEGATIVE (NEGATIVE); NITRITE,URINE NEGATIVE (NEGATIVE); PROTEIN,URINE NEGATIVE (NEGATIVE); URINE SPECIFIC GRAVITY 1.009; UROBILINOGEN,URINE NEGATIVE mg/dL (<2.0)
[2020-05-01 17:48] VITALS: BP 128/78
--- NOTE | 2020-05-01 22:45 | EKG REPORT ---
SEVERITY:- OTHERWISE NORMAL ECG - SINUS RHYTHM BORDERLINE LEFT AXIS DEVIATION : Confirmed by: Laisha Yanes MD 01-May-2020 22:44:24
--- NOTE | 2020-05-02 10:33 | ER Document Report ---
Entered by NISREEN PARSONS SCRIBE 05/01/20 1347 Acting as scribe for:MARILIN EPSTEIN DO ED General - General Chief Complaint: Weakness Stated Complaint: WEAKNESS Time Seen by Provider: 05/01/20 12:50 Primary Care Provider: VENUS VALENZUELA MD [NO LOCAL MD] - Follow up as needed Mode of Arrival: Wheelchair Information source: Relative Notes: This 60 year old male patient presents to the emergency department today with general weakness. Patient's spouse is at bedside and providing the patient's history. Patient has a history of Parkinson's for the past x20 years. Patient had a colonoscopy x4 days ago and it was unsuccessful. Patient has been prepping for another colonoscopy this week. Patient fell x2 times yesterday and felt generally weak last night. Patient's speech is not normal and needs help to walk. Patient reportedly hit his head but did not lose consciousness. No reported fever or injuries from the recent falls. TRAVEL OUTSIDE OF THE [place] IN LAST 30 DAYS: No - Related Data Allergies/Adverse Reactions: No Known Allergies Allergy (Verified 06/04/18 09:08) Past Medical History - General Information source: Relative - Social History Smoking Status: Unknown if Ever Smoked Lives with: Family Family History: Reviewed & Not Pertinent Patient has homicidal ideation: No - Past Medical History Cardiac Medical History: Reports: Hx Hypertension Neurological Medical History: Reports: Hx Parkinson's Disease Musculoskeletal Medical History: Reports Hx Arthritis - BACK - Immunizations Hx Diphtheria, Pertussis, Tetanus Vaccination: Yes Review of Systems - Review of Systems Constitutional: See HPI. denies: Fever EENT: No symptoms reported Cardiovascular: No symptoms reported Respiratory: No symptoms reported Gastrointestinal: No symptoms reported Genitourinary: No symptoms reported Male Genitourinary: No symptoms reported Musculoskeletal: No symptoms reported Skin: No symptoms reported Hematologic/Lymphatic: No symptoms reported Neurological/Psychological: See HPI, Weakness. denies: Lost consciousness -: Yes All other systems reviewed and negative Physical Exam - Vital signs Vitals: Pulse Ox 97 05/01/20 12:37 - General General appearance: Alert, Other - Appears chronically ill - HEENT Head: Normocephalic, Atraumatic Eyes: Normal Pupils: PERRL Mucous membranes: Dry Neck: Supple - Respiratory Respiratory status: No respiratory distress Chest status: Nontender Breath sounds: Normal Chest palpation: Normal - Cardiovascular Rhythm: Regular Heart sounds: Normal auscultation Murmur: No - Abdominal Inspection: Normal - Soft Distension: No distension Bowel sounds: Normal Tenderness: Nontender - Extremities General upper extremity: Normal inspection. No: Edema General lower extremity: Normal inspection. No: Edema - Neurological Notes: Bilateral symmetrical weakness of the lower and upper extremities. - Psychological Associated symptoms: Normal affect, Normal mood - Skin Skin Temperature: Warm Skin Moisture: Dry Skin Color: Normal Course - Re-evaluation Re-evalutation: 05/01/20 16:45 MDM Delightful man with is here with aloc after 2 preps for colonscopy in last week and "feeling horrible." No fever. No pain. Fell yesterday more than once and struck head. Speech is difficult today and generalized weakness, but no focal weakness. He is moderately improved here after IVF and we discussed and he is anxious to go home. His is agreeable to this as well. We will have him follow up with his doctor tomorrow. 05/01/20 16:51 Due to bilateral cerebral shunts being placed in realtion to his Parkinsons Disease which has onset in his early 40's and being followed at [facility] for this I felt Ct of brain was reasonable. - Vital Signs Vital signs: Temp Pulse Resp BP Pulse Ox 97.8 F 64 22 H 128/78 H 97 05/01/20 17:50 05/01/20 17:50 05/01/20 17:50 05/01/20 17:50 05/01/20 17:50 - Laboratory Result Diagrams: 05/01/20 13:12 05/01/20 13:12 Laboratory results interpreted by me: 05/01/20 05/01/20 13:12 15:55 Sodium 136.5 L Magnesium 2.4 H Urine Ketones TRACE H Urine Blood SMALL H - Diagnostic Test Radiology reviewed: Reports reviewed - EKG Interpretation by Me EKG shows normal: Sinus rhythm Rate: Normal Rhythm: NSR [place]cal[place]/QRS: Left axis deviation - NSR Left [place] [address] elevation or depression my interpretation. Discharge - Discharge Clinical Impression: Dehydration, Generalized weakness, Parkinsons disease Condition: Stable Disposition: HOME, SELF-CARE Instructions: Clear Liquid Diet ([facility]), Weakness ([facility]) Additional Instructions: Rest, fluids, please return here for any problems or any concerns. Call your doctor for follow up in the morning tomorrow. Prescriptions: Ondansetron [Zofran Odt 4 mg Tablet] 1 - 2 tab PO Q4HP PRN #10 tab.rapdis PRN Reason: Referrals: VENUS VALENZUELA MD [NO LOCAL MD] - Follow up as needed I personally performed the services described in the documentation, reviewed and edited the documentation which was dictated to the scribe in my presence, and it accurately records my words and actions.
== END 2020-05-01 17:50 | disposition home or self-care (01) ==
LOC: ER 12:36
DX: E86.0 Dehydration (principal); R53.1 Weakness; G20 Parkinson's disease; Z91.81 History of falling; I10 Essential (primary) hypertension
CPT/HCPCS: 93005; 99285; 96372; 96360; 96361; 36415; 82553; 82962; 82550; 83605; 83735; 84443; 85025; 85610; 85730; 80053; 81001; 84484; 71045; 70450; 93010; J0500; J7121; J7030

== ENCOUNTER → 2020-06-16 | Outpatient (CLI) | payer MEDICARE, OTHER ==
[~2020-06-16] MED LIST: LACTATED RINGERS 1000 ML IV PRN; LIDOCAINE 0.5% INJ-PF (5 MG/ML) 50 ML SDV SUBCUT PRN
[2020-06-16 11:14] LABS: HEMATOCRIT 42.2 % (37.9-51.0); HEMOGLOBIN 14.3 g/dL (13.5-17.0); MEAN CORPUSCULAR HEMOGLOBIN 31.3 pg (27.0-33.4); MEAN CORPUSCULAR VOLUME 92 fl (80-97); PLATELET COUNT 226 10^3/uL (150-450); RED BLOOD COUNT 4.57 10^6/uL (4.35-5.55); RED CELL DISTRIBUTION WIDTH 12.4 % (11.5-14.0); WHITE BLOOD COUNT 6.2 10^3/uL (4.0-10.5)
[2020-06-16 11:35] LABS: APPEARANCE,URINE CLEAR; BILIRUBIN,URINE NEGATIVE (NEGATIVE); COLOR,URINE YELLOW; GLUCOSE, URINE NEGATIVE (NEGATIVE); KETONES,URINE TRACE mg/dL (NEGATIVE); LEUKOCYTE ESTERASE,URINE NEGATIVE (NEGATIVE); NITRITE,URINE NEGATIVE (NEGATIVE); PROTEIN,URINE NEGATIVE (NEGATIVE); URINE SPECIFIC GRAVITY 1.025; UROBILINOGEN,URINE NEGATIVE mg/dL (<2.0)
[2020-06-16 11:36] LABS: ANION GAP 5 (5-19); BLOOD UREA NITROGEN 21 mg/dL (7-20); CALCIUM 9.3 mg/dL (8.4-10.2); CARBON DIOXIDE 30 mmol/L (22-30); CHLORIDE 102 mmol/L (98-107); GLUCOSE 82 mg/dL (75-110); POTASSIUM 4.7 mmol/L (3.6-5.0)
--- NOTE | 2020-06-16 12:10 | RADIOLOGY REPORT (SQ) ---
EXAM DESCRIPTION: CHEST PA/LATERAL IMAGES COMPLETED DATE/TIME: 06/16/2020 10:06 am REASON FOR STUDY: PRE OP COMPARISON: 05/01/2020 EXAM PARAMETERS: NUMBER OF VIEWS: two views TECHNIQUE: Digital Frontal and Lateral radiographic views of the chest acquired. RADIATION DOSE: NA LIMITATIONS: none FINDINGS: LUNGS AND PLEURA: No opacities, masses or pneumothorax. No pleural effusion. MEDIASTINUM AND HILAR STRUCTURES: No masses or contour abnormalities. HEART AND VASCULAR STRUCTURES: Heart normal size. No evidence for failure. BONES: No acute findings. HARDWARE: Neurostimulator device overlies the left chest. OTHER: No other significant finding. IMPRESSION: NO SIGNIFICANT RADIOGRAPHIC FINDING IN THE CHEST. TECHNICAL DOCUMENTATION: JOB ID: [id number] 2010 [employer]- All Rights Reserved Reading location - IP/workstation name: [email or web address]
--- NOTE | 2020-06-16 18:04 | EKG REPORT ---
SEVERITY:- BORDERLINE ECG - SINUS RHYTHM PROBABLE LEFT ATRIAL ABNORMALITY LEFT AXIS DEVIATION BORDERLINE T ABNORMALITIES, ANT-LAT LEADS : Confirmed by: Laisha Yaens MD 16-Jun-2020 18:02:12
== END ==
LOC: OD 09:11 → EDSTATUS 06-21 08:00
PROVIDERS: ATTEND Orthopaedic Surgery
DX: Z03.818 Encounter for observation for suspected exposure to other biological agents ruled out (principal); Z01.810 Encounter for preprocedural cardiovascular examination; Z01.812 Encounter for preprocedural laboratory examination; Z01.818 Encounter for other preprocedural examination
CPT/HCPCS: 93005; 36415; 85027; 80048; 81001; 71046; 93010; U0003; C9803; 87635